=== PATIENT | male | born 1970 | race Caucasian/White ===

== ENCOUNTER 2019-07-02 07:31 | Emergency (ER) | payer OTHER ==
[~2019-07-02] VITALS: Ht 162.6 cm; Wt 77.1 kg
[2019-07-02] MEDS ORDERED: IMURAN50 MG (07:52)
[2019-07-02] MEDS ORDERED: REMICADE (07:53)
[2019-07-02] MEDS ORDERED: PREDNISONE10 MG PO (11:39)
[2019-07-02] MEDS ORDERED: NEURONTIN300 MG PO (11:39)
[2019-07-02] MEDS ORDERED: SKELAXIN800 MG PO (11:39)
== END 2019-07-02 12:48 | disposition home or self-care (01) ==
LOC: ER 07:31
DX: S39.012A Strain of muscle, fascia and tendon of lower back, initial encounter (principal); X50.3XXA Overexertion from repetitive movements, initial encounter; Y93.89 Activity, other specified; Y92.89 Other specified places as the place of occurrence of the external cause; Y99.8 Other external cause status